=== PATIENT | female | born 2000 | race Caucasian/White ===

== ENCOUNTER 2019-06-02 12:41 | Observation (INO) ==
[2019-06-02 13:28] VITALS: BP 132/89
[2019-06-02 13:50] LABS: Basophils # 0.1 K/mcL (0.0-0.2); Basophils % 0.5 %; Eosinophils # 0.2 K/mcL (0.0-0.6); Eosinophils % 1.4 %; Hematocrit 37.7 % (35.3-44.9); Hemoglobin 12.7 g/dL (11.5-15.4); Immature Granulocytes % 1.3 % (0-4); Lymphocytes # 1.6 K/mcL (0.6-4.6); Lymphocytes % 14.9 %; Mean Corpuscular HGB Conc 33.7 g/dL (31.6-35.5); Mean Corpuscular Hemoglobin 28.7 pg (28.0-33.3); Mean Corpuscular Volume 85.1 fL (83.0-100.0); Mean Platelet Volume 12.3 fL (9.4-12.4); Monocytes # 0.7 K/mcL (0.0-1.3); Monocytes % 6.6 %; Neutrophils # 7.8 K/mcL (1.6-8.9); Platelet Count 255 K/mcL (140-400); Red Blood Count 4.43 M/mcL (3.82-4.97); Red Cell Distribution Width 13.7 % (11.5-14.5); Segmented Neutrophils % 75.3 %; White Blood Count 10.4 K/mcL (4.3-11.1)
[2019-06-02 13:59] LABS: Amphetamine Screen,Urine Negative ng/mL (Cutoff=1000); Barbiturate Screen,Urine Negative ng/mL (Cutoff=200); Benzodiazepines Screen,Urine Negative ng/mL (Cutoff=200); Cannabinoid Screen,Urine Negative ng/mL (Cutoff = 50); Cocaine Screen,Urine Negative ng/mL (Cutoff= 300); Creatinine,Urine 48 mg/dL; Opiate Screen,Urine Negative ng/mL (Cutoff=300); Phencyclidine Screen,Urine Negative ng/mL (Cutoff=25); Protein/Creatinine Ratio,Urine 0.35 mg/mg (0.00-0.20)
[2019-06-02 14:10] LABS: Alanine Aminotransferase 12 Units/L (7-52); Aspartate Amino Transferase 17 Units/L (13-39); BUN/Creatinine Ratio 21 (6-26); Blood Urea Nitrogen 11 mg/dL (6-20); Lactate Dehydrogenase 172 Units/L (140-271); Uric Acid 6.1 mg/dL (2.3-7.6); eGFR For African Americans > 60 (> 60); eGFR For Non-African Americans > 60 (> 60)
== END 2019-06-02 16:05 | disposition home or self-care (01) ==
LOC: 1NENULAB
PROVIDERS: ADMIT Advanced Practice Midwife; ATTEND Advanced Practice Midwife

== ENCOUNTER 2019-06-03 16:16 | Observation (INO) ==
[2019-06-03] MEDS ORDERED: Ondansetron 4 MG/2 ML VIAL IVP PRN (16:24)
[2019-06-03] MEDS ORDERED: Ringers Solution, Lactated 1,000 ML IVC SCH (16:30)
[2019-06-03 17:06] LABS: Amphetamine Screen,Urine Negative ng/mL (Cutoff=1000); Barbiturate Screen,Urine Negative ng/mL (Cutoff=200); Benzodiazepines Screen,Urine Negative ng/mL (Cutoff=200); Cannabinoid Screen,Urine Negative ng/mL (Cutoff = 50); Cocaine Screen,Urine Negative ng/mL (Cutoff= 300); Opiate Screen,Urine Negative ng/mL (Cutoff=300); Phencyclidine Screen,Urine Negative ng/mL (Cutoff=25)
[2019-06-03 18:16] LABS: Total Volume 24 Hour,Urine 2.79 Liters (0.60-1.60)
== END 2019-06-03 18:52 | disposition home or self-care (01) ==
LOC: 1NENULAB
PROVIDERS: ADMIT Advanced Practice Midwife; ATTEND Advanced Practice Midwife

== ENCOUNTER 2019-06-07 00:08 | Inpatient (IN) ==
[2019-06-06 23:16] LABS: Basophils % 0.2 %; Eosinophils # 0.2 K/mcL (0.0-0.6); Eosinophils % 1.5 %; Hemoglobin 12.6 g/dL (11.5-15.4); Immature Granulocytes % 1.4 % (0-4); Lymphocytes % 16.2 %; Mean Corpuscular HGB Conc 33.2 g/dL (31.6-35.5); Mean Corpuscular Hemoglobin 28.6 pg (28.0-33.3); Mean Corpuscular Volume 86.2 fL (83.0-100.0); Mean Platelet Volume 12.3 fL (9.4-12.4); Monocytes % 7.9 %; Neutrophils # 8.9 K/mcL (1.6-8.9); Platelet Count 253 K/mcL (140-400); Red Blood Count 4.41 M/mcL (3.82-4.97); Red Cell Distribution Width 13.8 % (11.5-14.5); Segmented Neutrophils % 72.8 %; White Blood Count 12.3 K/mcL (4.3-11.1)
[2019-06-06 23:18] LABS: Bilirubin,Urine Negative (Negative); Blood,Urine Negative (Negative); Clarity,Urine Cloudy (Clear); Color,Urine Yellow (Yellow); Glucose,Urine (UA) Normal (Normal); Ketones,Urine Negative (Negative); Leukocyte Esterase,Urine Small (Negative); Nitrite,Urine Negative (Negative); Protein,Urine 30 mg/dL (Neg-Trace); Specific Gravity,Urine 1.019 (1.010-1.025); Urobilinogen,Urine Normal (Normal)
[2019-06-06 23:21] LABS: Bacteria,Urine Moderate per hpf (None-Few); Hyaline Casts,Urine None Seen per lpf (None-Few); RBC,Urine 0-3 per hpf (0-3); Squamous Epithelial Cell,Urine Many per lpf (None-Few)
[2019-06-06 23:25] LABS: Amphetamine Screen,Urine Negative ng/mL (Cutoff=1000); Barbiturate Screen,Urine Negative ng/mL (Cutoff=200); Benzodiazepines Screen,Urine Negative ng/mL (Cutoff=200); Cannabinoid Screen,Urine Negative ng/mL (Cutoff = 50); Cocaine Screen,Urine Negative ng/mL (Cutoff= 300); Creatinine,Urine 48 mg/dL; Opiate Screen,Urine Negative ng/mL (Cutoff=300); Phencyclidine Screen,Urine Negative ng/mL (Cutoff=25); Protein/Creatinine Ratio,Urine 0.75 mg/mg (0.00-0.20)
[2019-06-06 23:35] LABS: Alanine Aminotransferase 13 Units/L (7-52); Aspartate Amino Transferase 18 Units/L (13-39); BUN/Creatinine Ratio 28 (6-26); Blood Urea Nitrogen 14 mg/dL (6-20); Lactate Dehydrogenase 194 Units/L (140-271); Uric Acid 5.8 mg/dL (2.3-7.6); eGFR For African Americans > 60 (> 60); eGFR For Non-African Americans > 60 (> 60)
[~2019-06-07 00:08] MED LIST: *HR* Nalbuphine 10 MG/ML AMPUL IVP PRN; Famotidine 20 MG/2 ML VIAL IVP PRN; Metoclopramide 10 MG/2 ML VIAL IVP PRN; Naloxone 0.4 MG/ML INJ IVP PRN; Ondansetron 4 MG/2 ML VIAL IVP PRN
[2019-06-07] MEDS ORDERED: Ringers Solution, Lactated 1,000 ML IVC SCH (00:15)
[2019-06-07] MEDS ORDERED: Oxytocin 20 units/ LR 1000 mL 20 UNIT/1,000 ML BAG IVC SCH ×3 (00:15→08:10)
[2019-06-07] MEDS ORDERED: Acetaminophen 325 MG TABLET PO ONE (01:56)
[2019-06-07] MEDS ORDERED: Lidocaine -MPF 2% 5 ML VIAL ONE (03:45)
[2019-06-07] MEDS ORDERED: *HR* Propofol 200 MG/20 ML VIAL IVP ONE (03:45)
[2019-06-07] MEDS ORDERED: Ondansetron 4 MG/2 ML VIAL ONE (03:45)
[2019-06-07] MEDS ORDERED: Dexamethasone 4 MG/ML VIAL ONE (03:45)
[2019-06-07] MEDS ORDERED: *HR* Succinylcholine 200 MG/10 ML VIAL IVP ONE (03:45)
[2019-06-07] MEDS ORDERED: *HR* FentaNYL (PF) 100 MCG/2 ML VIAL ONE ×2 (03:45→03:46)
[2019-06-07] MEDS ORDERED: Ondansetron 4 MG/2 ML VIAL IVP PRN ×2 (04:01→08:10)
[2019-06-07] MEDS ORDERED: Acetaminophen IV 1,000 MG/100 ML INFUS..BTL IVPB ONE (04:01)
[2019-06-07] MEDS ORDERED: *HR* HYDROmorphone (PF) 1 MG/ML SYRINGE IVP PRN (04:01)
[2019-06-07] MEDS ORDERED: *HR* HYDROMORPHONE 2 MG/ML VIAL ONE (04:03)
[2019-06-07] MEDS ORDERED: *HR* Labetalol 20 MG/4 ML SYRINGE IVP ONE (05:27)
[2019-06-07] MEDS ORDERED: Magnesium Sulfate 20 gm/500mL 20 GM/500 ML IV.SOLN IVC SCH (06:45)
[2019-06-07] MEDS ORDERED: Calcium Gluconate 1,000 MG/10 ML VIAL ONE (08:04)
[2019-06-07] MEDS ORDERED: Metoclopramide 10 MG/2 ML VIAL IVP PRN (08:10)
[2019-06-07] MEDS ORDERED: Simethicone 80 MG TAB.CHEW PO PRN (08:10)
[2019-06-07] MEDS ORDERED: Azithromycin 500 MG in 0.9 % Sodium Chloride 250 ML IVPB SCH (08:10)
[2019-06-07] MEDS ORDERED: Morphine PCA 30 MG/ 30 ML 30 ML PCA.VIAL IVC PRN (08:10)
[2019-06-07] MEDS ORDERED: Rho Immune Globulin 1,500 UNIT SYRINGE IM ONE (08:10)
[2019-06-07] MEDS ORDERED: Sennosides 8.6 MG TABLET PO PRN (08:10)
[2019-06-07] MEDS: Ibuprofen 600 MG TABLET PO PRN ×3 (08:34→20:07)
[2019-06-07] MEDS: metroNIDAZOLE 500 MG TABLET PO SCH ×2 (08:34→20:07)
[2019-06-07] MEDS: Prenatal Vit/FA 1 EACH TABLET PO SCH (08:34)
[2019-06-07] MEDS: cephALEXin 500 MG CAPSULE PO SCH ×2 (08:34→20:07)
[2019-06-07] MEDS: *HR* OxyCODONE Immed Rel 5 MG TABLET PO PRN ×4 (09:01→21:48)
[2019-06-07] MEDS: *HR* OxyCODONE/APAP 5/325 TABLET PO PRN ×3 (10:14→19:18)
[2019-06-07] MEDS: Magnesium Sulfate 20 gm/500mL 20 GM/500 ML IV.SOLN IVC SCH (17:25)
[2019-06-08] MEDS: *HR* OxyCODONE/APAP 5/325 TABLET PO PRN ×3 (00:01→11:19)
[2019-06-08] MEDS: Ibuprofen 600 MG TABLET PO PRN ×3 (02:11→20:28)
[2019-06-08] MEDS: Magnesium Sulfate 20 gm/500mL 20 GM/500 ML IV.SOLN IVC SCH (03:42)
[2019-06-08] MEDS: *HR* OxyCODONE Immed Rel 5 MG TABLET PO PRN ×2 (07:06→18:10)
[2019-06-08] MEDS: metroNIDAZOLE 500 MG TABLET PO SCH ×2 (08:24→20:29)
[2019-06-08] MEDS: Prenatal Vit/FA 1 EACH TABLET PO SCH (08:24)
[2019-06-08] MEDS: cephALEXin 500 MG CAPSULE PO SCH ×2 (08:26→20:28)
[2019-06-08 08:36] LABS: Basophils % 0.3 %; Eosinophils # 0.1 K/mcL (0.0-0.6); Eosinophils % 1.1 %; Hemoglobin 11.3 g/dL (11.5-15.4); Immature Granulocytes % 1.1 % (0-4); Lymphocytes # 1.8 K/mcL (0.6-4.6); Mean Corpuscular HGB Conc 32.3 g/dL (31.6-35.5); Mean Corpuscular Hemoglobin 28.9 pg (28.0-33.3); Mean Corpuscular Volume 89.5 fL (83.0-100.0); Mean Platelet Volume 11.8 fL (9.4-12.4); Monocytes # 0.9 K/mcL (0.0-1.3); Monocytes % 7.9 %; Neutrophils # 8.8 K/mcL (1.6-8.9); Platelet Count 249 K/mcL (140-400); Red Blood Count 3.91 M/mcL (3.82-4.97); Red Cell Distribution Width 14.5 % (11.5-14.5); Segmented Neutrophils % 74.6 %; White Blood Count 11.8 K/mcL (4.3-11.1)
[2019-06-08 08:52] LABS: Alanine Aminotransferase 15 Units/L (7-52); Aspartate Amino Transferase 29 Units/L (13-39); BUN/Creatinine Ratio 17 (6-26); Blood Urea Nitrogen 11 mg/dL (6-20); Lactate Dehydrogenase 411 Units/L (140-271); Uric Acid 6.4 mg/dL (2.3-7.6); eGFR For African Americans > 60 (> 60); eGFR For Non-African Americans > 60 (> 60)
[2019-06-08] MEDS ORDERED: Ondansetron ODT 4 MG TAB.RAPDIS SL PRN (11:16)
[2019-06-09] MEDS: *HR* OxyCODONE/APAP 5/325 TABLET PO PRN (01:08)
[2019-06-09] MEDS ORDERED: FLU Vac QV 19-20 (6Month+)/PF 0.5 ML SYRINGE IM ONE (07:19)
[2019-06-09] MEDS: Ibuprofen 600 MG TABLET PO PRN (07:59)
[2019-06-09] MEDS: metroNIDAZOLE 500 MG TABLET PO SCH (07:59)
[2019-06-09] MEDS: cephALEXin 500 MG CAPSULE PO SCH (07:59)
[2019-06-09] MEDS: Prenatal Vit/FA 1 EACH TABLET PO SCH (07:59)
[2019-06-09 08:27] VITALS: BP 136/96
== END 2019-06-09 12:07 | disposition home or self-care (01) | DRG 540 ==
LOC: 1NENULAB → 1NENUOBS 08:01
PROVIDERS: ADMIT Registered Nurse; ATTEND Registered Nurse

== ENCOUNTER → 2020-09-10 11:24 | Observation (INO) ==
[2020-09-10 11:00] LABS: Bacteria,Urine Few per hpf (None-Few); Bilirubin,Urine Negative (Negative); Blood,Urine Negative (Negative); Clarity,Urine Turbid (Clear); Color,Urine Light-Yellow (Yellow); Glucose,Urine (UA) Normal (Normal); Ketones,Urine Negative (Negative); Leukocyte Esterase,Urine Small (Negative); Mucus,Urine Few per lpf (None-Few); Nitrite,Urine Negative (Negative); Protein,Urine Negative (Neg-Trace); RBC,Urine 0-3 per hpf (0-3); Specific Gravity,Urine 1.014 (1.010-1.025); Squamous Epithelial Cell,Urine Few per hpf (None-Few); Urobilinogen,Urine Normal (Normal); WBC,Urine 0-3 per hpf (0-3)
== END | disposition home or self-care (01) ==
LOC: 1NENULAB
PROVIDERS: ADMIT Obstetrics & Gynecology; ATTEND Obstetrics & Gynecology

== ENCOUNTER → 2020-10-08 16:25 | Observation (INO) ==
[2020-10-08 16:17] LABS: Bilirubin,Urine Negative (Negative); Blood,Urine Negative (Negative); Clarity,Urine Clear (Clear); Color,Urine Light-Yellow (Yellow); Glucose,Urine (UA) Normal (Normal); Ketones,Urine Negative (Negative); Leukocyte Esterase,Urine Negative (Negative); Nitrite,Urine Negative (Negative); PH,Urine 6.5 pH Units (5.0-8.0); Protein,Urine Negative (Neg-Trace); Specific Gravity,Urine 1.013 (1.010-1.025); Urobilinogen,Urine Normal (Normal)
[2020-10-08 16:22] LABS: Basophils # 0.1 K/mcL (0.0-0.2); Basophils % 0.7 %; Eosinophils # 0.3 K/mcL (0.0-0.6); Hemoglobin 12.8 g/dL (11.5-15.4); Immature Granulocytes % 1.5 % (0-4); Lymphocytes # 2.2 K/mcL (0.6-4.6); Lymphocytes % 21.7 %; Mean Corpuscular Hemoglobin 27.4 pg (28.0-33.3); Mean Corpuscular Volume 85.7 fL (83.0-100.0); Mean Platelet Volume 11.6 fL (9.4-12.4); Monocytes # 0.8 K/mcL (0.0-1.3); Monocytes % 7.7 %; Neutrophils # 6.7 K/mcL (1.6-8.9); Platelet Count 271 K/mcL (140-400); Red Blood Count 4.67 M/mcL (3.82-4.97); Red Cell Distribution Width 13.4 % (11.5-14.5); Segmented Neutrophils % 65.4 %; White Blood Count 10.2 K/mcL (4.3-11.1)
[2020-10-08 16:24] LABS: Protein/Creatinine Ratio,Urine 0.13 mg/mg (0.00-0.20)
[2020-10-08 16:36] LABS: Alanine Aminotransferase 9 Units/L (7-52); Aspartate Amino Transferase 17 Units/L (13-39); BUN/Creatinine Ratio 21 (6-26); Blood Urea Nitrogen 10 mg/dL (6-20); Lactate Dehydrogenase 167 Units/L (140-271); Uric Acid 4.8 mg/dL (2.3-7.6); eGFR For African Americans > 60 (> 60); eGFR For Non-African Americans > 60 (> 60)
== END | disposition home or self-care (01) ==
LOC: 1NENULAB
PROVIDERS: ADMIT Obstetrics & Gynecology; ATTEND Obstetrics & Gynecology

== ENCOUNTER 2020-11-05 06:05 | Inpatient (IN) ==
[2020-11-05] MEDS ORDERED: CeFAZolin 2,000 MG/50 ML BAG IVPB ONE (06:18)
[2020-11-05] MEDS ORDERED: Ringers Solution, Lactated 1,000 ML IVC ONE (06:18)
[2020-11-05] MEDS ORDERED: Oxytocin 20 units/ LR 1000 mL 20 UNIT/1,000 ML BAG IVC ONE (06:18)
[2020-11-05] MEDS ORDERED: Famotidine 20 MG/2 ML VIAL IVP ONE (06:18)
[2020-11-05] MEDS ORDERED: Metoclopramide 10 MG/2 ML VIAL IVP ONE (06:18)
[2020-11-05] MEDS ORDERED: Oxytocin 20 units/ LR 1000 mL 20 UNIT/1,000 ML BAG IVC SCH (06:30)
[2020-11-05] MEDS ORDERED: Ringers Solution, Lactated 1,000 ML IVC SCH (06:30)
[2020-11-05] MEDS ORDERED: *HR* FentaNYL (PF) 100 MCG/2 ML VIAL ONE (06:33)
[2020-11-05] MEDS ORDERED: *HR* Morphine Sulfate/PF 10 MG/10 ML AMPUL ONE (06:33)
[2020-11-05 06:49] LABS: Basophils % 0.5 %; Eosinophils # 0.2 K/mcL (0.0-0.6); Eosinophils % 2.4 %; Hematocrit 38.3 % (35.3-44.9); Hemoglobin 12.9 g/dL (11.5-15.4); Immature Granulocytes % 1.7 % (0-4); Lymphocytes % 24.7 %; Mean Corpuscular HGB Conc 33.7 g/dL (31.6-35.5); Mean Corpuscular Volume 83.1 fL (83.0-100.0); Mean Platelet Volume 11.8 fL (9.4-12.4); Monocytes # 0.8 K/mcL (0.0-1.3); Monocytes % 9.7 %; Platelet Count 222 K/mcL (140-400); Red Blood Count 4.61 M/mcL (3.82-4.97); Red Cell Distribution Width 14.3 % (11.5-14.5); White Blood Count 8.2 K/mcL (4.3-11.1)
[2020-11-05] MEDS ORDERED: EPHEDrine 50 MG/ML VIAL ONE (07:24)
[2020-11-05] MEDS ORDERED: Ondansetron 4 MG/2 ML VIAL ONE (07:25)
[2020-11-05] MEDS ORDERED: Acetaminophen IV 1,000 MG/100 ML BAG IVPB ONE (07:26)
[2020-11-05] MEDS ORDERED: Ketorolac 30 MG/ML VIAL ONE (07:26)
[2020-11-05] MEDS ORDERED: Ondansetron 4 MG/2 ML VIAL IVP PRN ×2 (07:41→11:39)
[2020-11-05] MEDS ORDERED: *HR* OxyCODONE Immed Rel 5 MG TABLET PO PRN (07:41)
[2020-11-05] MEDS ORDERED: *HR* HYDROmorphone PF 0.5 MG/0.5 ML SYRINGE IVP PRN (07:41)
[2020-11-05 08:48] LABS: Amphetamine Screen,Urine Negative ng/mL (Cutoff=1000); Barbiturate Screen,Urine Negative ng/mL (Cutoff=200); Benzodiazepines Screen,Urine Negative ng/mL (Cutoff=200); Cannabinoid Screen,Urine Negative ng/mL (Cutoff = 50); Cocaine Screen,Urine Negative ng/mL (Cutoff= 300); Opiate Screen,Urine Negative ng/mL (Cutoff=300); Phencyclidine Screen,Urine Negative ng/mL (Cutoff=25)
[2020-11-05] MEDS ORDERED: Simethicone 80 MG TAB.CHEW PO PRN (11:39)
[2020-11-05] MEDS ORDERED: Sennosides 8.6 MG TABLET PO PRN (11:39)
[2020-11-05] MEDS ORDERED: Metoclopramide 10 MG/2 ML VIAL IVP PRN (11:39)
[2020-11-05] MEDS ORDERED: Rho Immune Globulin 1,500 UNIT SYRINGE IM ONE (11:39)
[2020-11-05] MEDS ORDERED: Acetaminophen 325 MG TABLET PO PRN (11:39)
[2020-11-05] MEDS: Ibuprofen 600 MG TABLET PO SCH ×2 (12:04→17:46)
[2020-11-05] MEDS: Oxytocin 20 units/ LR 1000 mL 20 UNIT/1,000 ML BAG IVC SCH ×2 (12:37→18:35)
[2020-11-05] MEDS: *HR* OxyCODONE/APAP 5/325 TABLET PO PRN (20:17)
[2020-11-06] MEDS: Ibuprofen 600 MG TABLET PO SCH ×2 (00:25→06:08)
[2020-11-06] MEDS: *HR* OxyCODONE/APAP 5/325 TABLET PO PRN (02:11)
[2020-11-06 04:28] LABS: Basophils # 0.1 K/mcL (0.0-0.2); Basophils % 0.7 %; Eosinophils # 0.2 K/mcL (0.0-0.6); Eosinophils % 2.4 %; Hematocrit 32.6 % (35.3-44.9); Hemoglobin 10.6 g/dL (11.5-15.4); Immature Granulocytes % 1.5 % (0-4); Lymphocytes # 2.3 K/mcL (0.6-4.6); Lymphocytes % 26.2 %; Mean Corpuscular HGB Conc 32.5 g/dL (31.6-35.5); Mean Platelet Volume 11.3 fL (9.4-12.4); Monocytes # 0.8 K/mcL (0.0-1.3); Monocytes % 9.1 %; Neutrophils # 5.2 K/mcL (1.6-8.9); Platelet Count 191 K/mcL (140-400); Red Blood Count 3.79 M/mcL (3.82-4.97); Red Cell Distribution Width 14.6 % (11.5-14.5); Segmented Neutrophils % 60.1 %; White Blood Count 8.6 K/mcL (4.3-11.1)
[2020-11-06] MEDS ORDERED: Ondansetron ODT 4 MG TAB.RAPDIS PO SCH (09:00)
[2020-11-06] MEDS ORDERED: Prenatal Vit/FA 1 EACH TABLET PO SCH (09:00)
[2020-11-06 10:51] VITALS: BP 105/64
== END 2020-11-06 17:48 | disposition home or self-care (01) | DRG 539 ==
LOC: 1NENULAB 06:05 → EDSTATUS 07:45 → 1NENUOBS 11:37
PROVIDERS: ADMIT Obstetrics & Gynecology; ATTEND Obstetrics & Gynecology